=== PATIENT | female | born 1980 | race Caucasian/White ===

== ENCOUNTER 2022-07-12 08:06 | Observation (INO) | payer OTHER, SELFPAY ==
[2022-07-12 08:34] LABS: #Basophils 0.1 thou/uL (0.0-0.2); #Eosinphils 0.1 thou/uL (0.0-0.7); #Lymphocytes 1.9 thou/uL (1.20-3.40); #Monocytes 1.2 thou/uL (0.11-0.59); #Neutrophils 9.8 thou/uL (1.40-6.50); %Basophils 0.5 % (0.0-1.0); %Eosinophils 0.7 % (0.0-10.0); %Lymphocytes 14.5 % (21.0-51.0); %Monocytes 8.9 % (0.0-10.0); %Neutrophils 75.4 % (42.0-75.0); Hemoglobin 14.4 g/dL (12.0-16.0); Mean Corpuscular HGB CONC 33.3 g/dL (32.0-36.0); Mean Corpuscular Hemoglobin 33.6 pg (27.0-31.0); Mean Platelet Volume 8.2 fL (7.4-10.4); Platelet Count 263 10x3/uL (130-400); RBC Distribution Width 12.6 % (11.5-14.5); Red Blood Cell (RBC) Count 4.29 mill/uL (4.20-5.40)
[2022-07-12 08:54] LABS: ALT (SGPT) 9 U/L (8-55); AST (SGOT) 10 U/L (5-34); Albumin 4.1 g/dL (3.5-5.0); Alkaline Phosphatase 49 U/L (40-110); Anion Gap 12 mmol/L (10-20); BUN (Urea Nitrogen) 16 mg/dL (7.0-18.7); Bilirubin, Total 0.4 mg/dL (0.2-1.2); Calc. Creatinine Clearance 0 mL/min (70-130); Calcium 8.7 mg/dL (7.8-10.44); Carbon Dioxide 20 mmol/L (22-29); Chloride 109 mmol/L (98-107); Estimated GFR 106; Globulin 2.9 g/dL (2.4-3.5); Glucose 87 mg/dL (70-105); Potassium 4.2 mmol/L (3.5-5.1); Sodium 137 mmol/L (136-145)
[2022-07-12 09:01] LABS: BHCG - Serum Negative (NEGATIVE); Pregs Control Background? CLEAR/WHITE (CLR/WHITE); Pregs Control Bar Appear? YES (CONTROL BAR)
[2022-07-12 11:14] LABS: SARS-CoV-2 NAA Rapid Test Not Detected (NotDetected)
[2022-07-12 13:09] LABS: CKMB 1.4 ng/mL (0-6.6)
[2022-07-12] MEDS ORDERED: Nicotine 21 MG PATCH TD SCH (19:26)
[2022-07-12] MEDS ORDERED: Ondansetron PF 4 MG/2 ML Vial IVP PRN (19:26)
[2022-07-12] MEDS ORDERED: Nitroglycerin 0.4 MG TAB (25 Tab Bottle) SL PRN (19:26)
[2022-07-12] MEDS ORDERED: Aspirin 325 MG TAB PO SCH (19:26)
[2022-07-12] MEDS ORDERED: Acetaminophen 325 MG TAB PO PRN (19:26)
[2022-07-12] MEDS ORDERED: Bisacodyl 5 MG TAB PO PRN (19:26)
[2022-07-12 20:40] VITALS: BMI 25.2
[2022-07-12] MEDS ORDERED: guaiFENesin ER 600 MG TAB PO PRN (22:18)
[2022-07-12] MEDS ORDERED: METHYLPREDNISOLONE 4 MG SCH (22:30)
[2022-07-12] MEDS ORDERED: methylPREDNISolone 4 mg Tablet PO SCH (23:00)
[2022-07-13 05:30] LABS: #Eosinphils 0.1 thou/uL (0.0-0.7); #Lymphocytes 1.2 thou/uL (1.20-3.40); #Monocytes 0.6 thou/uL (0.11-0.59); #Neutrophils 10.9 thou/uL (1.40-6.50); %Basophils 0.3 % (0.0-1.0); %Eosinophils 0.7 % (0.0-10.0); %Lymphocytes 9.3 % (21.0-51.0); %Monocytes 4.3 % (0.0-10.0); %Neutrophils 85.3 % (42.0-75.0); Hemoglobin 13.5 g/dL (12.0-16.0); Mean Corpuscular HGB CONC 34.2 g/dL (32.0-36.0); Mean Corpuscular Hemoglobin 34.6 pg (27.0-31.0); Mean Platelet Volume 8.7 fL (7.4-10.4); Platelet Count 235 10x3/uL (130-400); RBC Distribution Width 12.5 % (11.5-14.5); Red Blood Cell (RBC) Count 3.91 mill/uL (4.20-5.40); White Blood Cell (WBC) Count 12.8 10x3/uL (4.8-10.8)
[2022-07-13 05:51] LABS: Anion Gap 12 mmol/L (10-20); BUN (Urea Nitrogen) 12 mg/dL (7.0-18.7); Calc. Creatinine Clearance 136 mL/min (70-130); Calcium 8.3 mg/dL (7.8-10.44); Carbon Dioxide 19 mmol/L (22-29); Chloride 107 mmol/L (98-107); Estimated GFR 113; Glucose 94 mg/dL (70-105); Potassium 4.2 mmol/L (3.5-5.1); Sodium 134 mmol/L (136-145)
[2022-07-13] MEDS: methylPREDNISolone 4 mg Tablet PO SCH ×2 (07:44→13:42)
[2022-07-13 07:46] VITALS: TEMP 97.5
[2022-07-13] MEDS ORDERED: Azithromycin 250 MG TAB PO SCH (09:00)
[2022-07-13] MEDS ORDERED: Enoxaparin Sodium 40 MG/0.4 ML SYRINGE SC SCH (09:00)
[2022-07-13] MEDS ORDERED: Loratadine 10 MG TAB PO SCH (09:00)
[2022-07-13] MEDS ORDERED: Aspirin Chewable 81 MG TAB PO SCH (09:00)
[2022-07-13] MEDS ORDERED: Regadenoson 0.4 MG/5 ML SYRINGE ONE (09:09)
[2022-07-13 12:58] VITALS: BP 122/56
[2022-07-13] MEDS ORDERED: methylPREDNISolone 4 mg Tablet PO SCH (21:00)
[2022-07-14] MEDS ORDERED: methylPREDNISolone 4 mg Tablet PO SCH (08:00)
[2022-07-15] MEDS ORDERED: methylPREDNISolone 4 mg Tablet PO SCH (08:00)
[2022-07-16] MEDS ORDERED: methylPREDNISolone 4 mg Tablet PO SCH (08:00)
[2022-07-17] MEDS ORDERED: methylPREDNISolone 4 mg Tablet PO SCH (08:00)
== END 2022-07-13 16:12 | disposition home or self-care (01) ==
LOC: ERS 08:06 → 2SW 14:09
PROVIDERS: ADMIT Internal Medicine; ATTEND Internal Medicine
DX: R07.2 Precordial pain (principal); E87.1 Hypo-osmolality and hyponatremia; F17.210 Nicotine dependence, cigarettes, uncomplicated; Z79.899 Other long term (current) drug therapy; Z20.822 Contact with and (suspected) exposure to COVID-19
CPT/HCPCS: 36415; 71045; 78452; 80048; 80053; 82553; 84484; 84703; 85025; 85379; 93005; 93017; A9500; A9503; G0378; J1650; J2785; J7509